=== PATIENT | female | born 1965 | race Hispanic/Latino ===

== ENCOUNTER 2018-12-23 16:37 | Emergency (ER) | payer BC, OTHER ==
[2018-12-23] MEDS ORDERED: ACETAMINOPHEN EXTRA STRENGTH 500 MG TABLET ONE (16:50)
[2018-12-23] MEDS ORDERED: TETANUS/DIPHTHERIA TOXOID [ADULT] 0.5 ML VIAL IM ONE (16:50)
== END 2018-12-23 17:46 | disposition home or self-care (01) ==
LOC: EDH 16:37
DX: S01.01XA Laceration without foreign body of scalp, initial encounter (principal); Z90.710 Acquired absence of both cervix and uterus; Z90.49 Acquired absence of other specified parts of digestive tract; W20.8XXA Other cause of strike by thrown, projected or falling object, initial encounter; Y93.89 Activity, other specified; Y92.098 Other place in other non-institutional residence as the place of occurrence of the external cause; Y99.8 Other external cause status
CPT/HCPCS: 90471; 90714

== ENCOUNTER 2020-07-17 11:51 | Emergency (ER) | payer BC ==
[~2020-07-17] VITALS: Ht 167.6 cm; Wt 66.2 kg
[2020-07-17 12:48] LABS: BASOPHILS % (AUTO) 0.8 % (0.0-5.0); EOSINOPHILS % (AUTO) 0.6 % (0.0-8.0); HEMATOCRIT 36.4 % (36-48); LYMPHOCYTES % (AUTO) 45.1 % (21.0-51.0); MEAN CORPUSCULAR HEMOGLOBIN 28.8 pg (27.0-33.0); MEAN CORPUSCULAR HGB CONC 33.5 g/dL (32.0-36.0); MEAN CORPUSCULAR VOLUME 85.8 fL (79-99); MONOCYTES % (AUTO) 6.1 % (3.0-13.0); NEUTROPHILS % (AUTO) 47.2 % (40.0-77.0); PLATELET COUNT (AUTO) 256 K/uL (130-400); RED BLOOD CELL COUNT(AUTO) 4.24 MIL/uL (4.00-5.50); RED CELL DISTRIBUTION WIDTH 12.2 % (11.0-15.5); WHITE BLOOD COUNT (AUTO) 8.5 K/uL (4.8-10.8)
[2020-07-17 12:58] LABS: CREATININE 0.8 mg/dL (0.5-1.5); POTASSIUM 3.5 mmol/L (3.5-5.1)
[2020-07-17 13:06] LABS: ALBUMIN 3.8 g/dL (3.5-5.0); BILIRUBIN,TOTAL 0.6 mg/dL (0.2-1.0); TOTAL PROTEIN, SERUM 7.4 g/dL (6.0-8.3)
[2020-07-17 13:39] VITALS: BP 128/57
[2020-07-17] MEDS ORDERED: KETOROLAC 60 MG VIAL (30MG/ML) IM SCH (14:15)
[2020-07-17 16:46] VITALS: BP 129/60
== END 2020-07-17 16:48 | disposition home or self-care (01) ==
LOC: EDH 11:51
DX: S29.011A Strain of muscle and tendon of front wall of thorax, initial encounter (principal); R51.9 Headache, unspecified; Z79.899 Other long term (current) drug therapy; X58.XXXA Exposure to other specified factors, initial encounter; Y93.89 Activity, other specified; Y92.89 Other specified places as the place of occurrence of the external cause; Y99.8 Other external cause status
CPT/HCPCS: 36415; 71045; 80053; 84484; 85025; 93005; 96372; 99285; J1885

== ENCOUNTER 2022-04-07 07:16 | Inpatient (IN) | payer BC ==
[~2022-04-07] VITALS: Ht 162.6 cm; Wt 68.4 kg
[2022-04-07 08:15] LABS: BASOPHILS % (AUTO) 0.6 % (0.0-5.0); HEMATOCRIT 35.1 % (36-48); LYMPHOCYTES % (AUTO) 21.1 % (21.0-51.0); MEAN CORPUSCULAR HEMOGLOBIN 28.9 pg (27.0-33.0); MEAN CORPUSCULAR HGB CONC 33.6 g/dL (32.0-36.0); MEAN CORPUSCULAR VOLUME 85.8 fL (79-99); MONOCYTES % (AUTO) 6.9 % (3.0-13.0); NEUTROPHILS % (AUTO) 70.1 % (40.0-77.0); PLATELET COUNT (AUTO) 224 K/uL (130-400); RED BLOOD CELL COUNT(AUTO) 4.09 MIL/uL (4.00-5.50); RED CELL DISTRIBUTION WIDTH 11.6 % (11.0-15.5)
[2022-04-07 08:28] LABS: INR 0.93 (0.85-1.15); PROTHROMBIN TIME 10.2 SEC (9.6-11.6)
[2022-04-07 08:29] LABS: PARTIAL THROMBOPLASTIN TIME 26.9 SEC (26.3-35.5)
[2022-04-07] MEDS ORDERED: 0.9%NACL 1000ML 1,000 ML IV SCH (08:30)
[2022-04-07] MEDS ORDERED: KETOROLAC 30MG VIAL (30MG/ML) IVP SCH (08:30)
[2022-04-07 08:35] LABS: APPEARANCE,URINE CLEAR (CLEAR); BILIRUBIN,URINE NEGATIVE (NEGATIVE); COLOR,URINE COLORLESS (YELLOW); GLUCOSE, URINE (UA) NEGATIVE (NEGATIVE); KETONES,URINE NEGATIVE (NEGATIVE); LEUKOCYTE ESTERASE ,URINE NEGATIVE Leu/uL (NEGATIVE); NITRATE,URINE NEGATIVE (NEGATIVE); OCCULT BLOOD,URINE LARGE (NEGATIVE); PH,URINE 5.5 (5.0-8.0); PROTEIN,URINE NEGATIVE (NEGATIVE); UROBILINOGEN,URINE 0.2 mg/dL (0.2-1.0)
[2022-04-07 08:40] LABS: BACTERIA,URINE RARE /HPF (None Seen); SQUAMOUS EPITHELIAL CELL,UR RARE /HPF (0-2); WBC,URINE 0-1 /HPF (0-1)
[2022-04-07 08:52] LABS: CREATININE 0.7 mg/dL (0.5-1.5); POTASSIUM 3.6 mmol/L (3.5-5.1)
[2022-04-07 09:04] LABS: ALBUMIN 3.6 g/dL (3.5-5.0)
[2022-04-07] MEDS ORDERED: IOHEXOL 350 MG/ML 100ML INFUS..BTL IV ONE (09:16)
[2022-04-07] MEDS ORDERED: HYDROMORPHONE 1 MG INJ IVP SCH (10:00)
[2022-04-07] MEDS ORDERED: MORPHINE 2 MG SYG IVP PRN (10:00)
[2022-04-07] MEDS ORDERED: HYDRALAZINE 20MG/ML VIAL IV PRN (10:00)
[2022-04-07] MEDS ORDERED: ZOSYN 3.375GM +NS 50ML IVPB SCH ×2 (10:00)
[2022-04-07] MEDS ORDERED: ONDANSETRON 4MG INJ IVP PRN (10:00)
[2022-04-07] MEDS: 0.9%NACL 1000ML 1,000 ML IV SCH (10:27)
[2022-04-07] MEDS: ZOSYN 3.375GM+NS 50ML 50 ML IVPB SCH ×2 (10:28→20:22)
[2022-04-07] MEDS ORDERED: KETOROLAC 15MG/ML VIAL (15MG/ML) IV PRN (10:30)
[2022-04-07 14:00] VITALS: BP 130/56
[2022-04-07 15:30] VITALS: BP 125/62
[2022-04-07] MEDS ORDERED: 0.9%NACL 50ML IV SCH (18:00)
[2022-04-07 20:19] VITALS: BP 112/58
[2022-04-08 00:04] VITALS: BP 105/61
[2022-04-08 04:07] VITALS: BP 116/72
[2022-04-08] MEDS: ZOSYN 3.375GM+NS 50ML 50 ML IVPB SCH ×3 (04:58→20:44)
[2022-04-08] MEDS: 0.9%NACL 1000ML 1,000 ML IV SCH ×2 (04:58→18:29)
[2022-04-08 05:23] LABS: BASOPHILS % (AUTO) 0.4 % (0.0-5.0); EOSINOPHILS % (AUTO) 1.3 % (0.0-8.0); HEMATOCRIT 32.2 % (36-48); LYMPHOCYTES % (AUTO) 32.8 % (21.0-51.0); MEAN CORPUSCULAR HGB CONC 34.2 g/dL (32.0-36.0); MONOCYTES % (AUTO) 7.1 % (3.0-13.0); NEUTROPHILS % (AUTO) 58.1 % (40.0-77.0); PLATELET COUNT (AUTO) 221 K/uL (130-400); RED BLOOD CELL COUNT(AUTO) 3.79 MIL/uL (4.00-5.50); RED CELL DISTRIBUTION WIDTH 11.6 % (11.0-15.5)
[2022-04-08 05:39] LABS: ALBUMIN 2.9 g/dL (3.5-5.0); CREATININE 0.6 mg/dL (0.5-1.5); POTASSIUM 3.2 mmol/L (3.5-5.1); TOTAL PROTEIN, SERUM 6.1 g/dL (6.0-8.3)
[2022-04-08 07:10] VITALS: BP 127/68
[2022-04-08 11:46] VITALS: BP 138/69
[2022-04-08] MEDS: ACETAMINOPHEN 325 MG TAB PO PRN ×2 (11:58→15:58)
[2022-04-08 16:00] VITALS: BP 122/58
[2022-04-08 20:22] VITALS: BP 117/48
[2022-04-08] MEDS ORDERED: LIDOCAINE HCL-MPF 1% 2ML VIAL IV PRN (21:00)
[2022-04-08] MEDS ORDERED: POTASSIUM CHLORIDE 10% ELIXIR 20 MEQ/15 ML UDCUP PO PRN (21:00)
[2022-04-08] MEDS ORDERED: MAGNESIUM 2GM PREMIX 50ML 50 ML IV PRN (21:00)
[2022-04-08] MEDS ORDERED: POTASSIUM CHLORIDE 20MEQ/100ML 100 ML IV PRN (21:00)
[2022-04-08] MEDS: KCL 20 MEQ ERTAB PO PRN (21:33)
[2022-04-09 00:29] VITALS: BP 119/60
[2022-04-09] MEDS: KCL 20 MEQ ERTAB PO PRN ×3 (02:25→06:16)
[2022-04-09] MEDS: 0.9%NACL 1000ML 1,000 ML IV SCH (02:25)
[2022-04-09 04:08] VITALS: BP 116/42
[2022-04-09] MEDS: ZOSYN 3.375GM+NS 50ML 50 ML IVPB SCH ×2 (05:00→13:00)
[2022-04-09 05:27] LABS: HEMATOCRIT 32.6 % (36-48); MEAN CORPUSCULAR HGB CONC 34.4 g/dL (32.0-36.0); MEAN CORPUSCULAR VOLUME 84.5 fL (79-99); RED BLOOD CELL COUNT(AUTO) 3.86 MIL/uL (4.00-5.50); RED CELL DISTRIBUTION WIDTH 11.4 % (11.0-15.5); WHITE BLOOD COUNT (AUTO) 6.8 K/uL (4.8-10.8)
[2022-04-09 05:47] LABS: ALBUMIN 3.1 g/dL (3.5-5.0); CREATININE 0.7 mg/dL (0.5-1.5); POTASSIUM 3.7 mmol/L (3.5-5.1); TOTAL PROTEIN, SERUM 6.5 g/dL (6.0-8.3)
[2022-04-09 07:15] VITALS: BP 135/59
[2022-04-09 12:00] VITALS: BP 125/59
[2022-04-09] MEDS ORDERED: METR-172 PO (12:12)
[2022-04-09] MEDS ORDERED: LEVO-70 PO (12:12)
== END 2022-04-09 15:15 | disposition home or self-care (01) | DRG 392 ==
LOC: EDH 07:16 → EDHIP 10:00 → 4AH 13:55
PROVIDERS: ADMIT Hospitalist; ATTEND Hospitalist
DX: K57.32 Diverticulitis of large intestine without perforation or abscess without bleeding (principal); N39.0 Urinary tract infection, site not specified; Z82.49 Family history of ischemic heart disease and other diseases of the circulatory system; Z83.3 Family history of diabetes mellitus; Z90.710 Acquired absence of both cervix and uterus; Z90.49 Acquired absence of other specified parts of digestive tract
CPT/HCPCS: 36415; 74177; 80053; 81001; 82550; 83605; 83690; 83735; 84484; 85025; 85027; 85610; 85730; 87040; 87077; 87088; 87186; G0378; J1170; J1885; J2543; J7030; Q9967

== ENCOUNTER 2022-05-30 05:50 | Day surgery (SDC) | payer BC ==
[2022-05-27 09:20] LABS: INR 0.93 (0.85-1.15); PROTHROMBIN TIME 10.1 SEC (9.6-11.6)
[2022-05-27 09:21] LABS: PARTIAL THROMBOPLASTIN TIME 25.4 SEC (26.3-35.5)
[~2022-05-30] VITALS: Ht 167.6 cm; Wt 66.7 kg
[2022-05-30 06:45] VITALS: BP 107/64
[2022-05-30 07:29] LABS: HEMATOCRIT 40.9 % (36-48); MEAN CORPUSCULAR HEMOGLOBIN 29.2 pg (27.0-33.0); MEAN CORPUSCULAR HGB CONC 34.7 g/dL (32.0-36.0); PLATELET COUNT (AUTO) 294 K/uL (130-400); RED BLOOD CELL COUNT(AUTO) 4.87 MIL/uL (4.00-5.50); RED CELL DISTRIBUTION WIDTH 12.1 % (11.0-15.5)
[2022-05-30 07:32] LABS: BASOPHILS % (AUTO) 0.7 % (0.0-5.0); EOSINOPHILS % (AUTO) 1.3 % (0.0-8.0); LYMPHOCYTES % (AUTO) 37.5 % (21.0-51.0); MONOCYTES % (AUTO) 6.6 % (3.0-13.0); NEUTROPHILS % (AUTO) 53.6 % (40.0-77.0)
[2022-05-30 07:37] LABS: CREATININE 0.7 mg/dL (0.5-1.5); POTASSIUM 3.9 mmol/L (3.5-5.1)
[2022-05-30] MEDS ORDERED: PROPOFOL 10 MG/ML 20ML VIAL IV ONE ×4 (08:25→09:08)
[2022-05-30] MEDS ORDERED: LIDOCAINE PF 100MG/5ML (2%) SYRINGE 5ML ONE (08:26)
[2022-05-30 09:44] VITALS: BP 149/69
[2022-05-30 09:45] VITALS: BP 152/76
[2022-05-30 09:50] VITALS: BP 147/73
[2022-05-30 09:56] VITALS: BP 156/72
[2022-05-30 10:00] VITALS: BP 153/72
== END 2022-05-30 10:10 | disposition home or self-care (01) ==
LOC: DAH 05:50 → ENDO 05:50
PROVIDERS: ATTEND Student in an Organized Health Care Education/Training Program
DX: Z12.11 Encounter for screening for malignant neoplasm of colon (principal); Z20.822 Contact with and (suspected) exposure to COVID-19; K57.30 Diverticulosis of large intestine without perforation or abscess without bleeding; K63.5 Polyp of colon; Z90.710 Acquired absence of both cervix and uterus; Z90.49 Acquired absence of other specified parts of digestive tract; Z79.899 Other long term (current) drug therapy; Z79.01 Long term (current) use of anticoagulants
CPT/HCPCS: 84703; 85610; 85730; 87426; 36415 ×2; 80048; 85025; 45385; J2001; J2704 ×4; A4620; A4215 ×2; A4223; A4657; A7002; A4222; A4221; A4663; J7030; A4606